=== PATIENT | female | born 1945 | race Caucasian/White ===

== ENCOUNTER → 2024-01-06 13:08 | Outpatient (BNVA) | payer OTHER, SELFPAY | PROVIDERS: PCP Internal Medicine; Referring Provider Internal Medicine; Visit Provider Internal Medicine Critical Care Medicine | DX: R05.3 Chronic cough (principal); G47.33 Obstructive sleep apnea (adult) (pediatric); Z87.891 Personal history of nicotine dependence | CPT/HCPCS: 99204 ==

== ENCOUNTER → 2024-02-04 12:49 | Outpatient (BNVA) | payer OTHER, SELFPAY | PROVIDERS: PCP Internal Medicine; Referring Provider Internal Medicine; Visit Provider Internal Medicine Critical Care Medicine | DX: J45.20 Mild intermittent asthma, uncomplicated (principal); R05.3 Chronic cough | CPT/HCPCS: 36415; 99213 ==

== ENCOUNTER 2024-02-04 13:44 | Outpatient (REF) | payer OTHER, SELFPAY ==
[2024-02-04 13:54] LABS: Abs Immature Grans 0.02 10^3/uL (0.0-0.06); Absolute Basophil Count 0.05 10^3/uL (0.0-0.2); Absolute Eosinophil Count 0.66 10^3/uL (0.0-0.7); Absolute Lymphocyte Count 2.81 10^3/uL (1.2-3.4); Absolute Monocyte Count 0.63 10^3/uL (0.1-0.8); Absolute Neutrophil Count 4.02 10^3/uL (1.2-6.7); Basophils % 0.6 %; Eosinophils % 8.1 %; HCT 40.5 % (36.0-46.0); HGB 13.1 g/dL (11.2-15.7); Immature Grans % 0.2 %; Lymphocytes % 34.3 %; MCH 28.9 pg (27.0-33.0); MCHC 32.3 % (32.0-36.0); MCV 89 fL (80-95); Monocytes % 7.7 %; Neutrophils % 49.1 %; Platelet Count 245 10^3/uL (130-400); RBC 4.53 10^6/uL (3.93-5.22); RDW 14.5 % (11.7-14.6); RDW-SD 47.4 fL; WBC 8.19 10^3/uL (4.4-10.8)
[2024-02-06 08:34] LABS: IgE 31 IU/mL (<158)
== END 2024-02-04 13:45 | disposition home or self-care (01) ==
LOC: LBN 13:44
PROVIDERS: PCP Internal Medicine; Visit Provider Internal Medicine Critical Care Medicine
DX: R05.3 Chronic cough (principal)
CPT/HCPCS: 82785; 85025

== ENCOUNTER 2024-02-27 11:40 | Outpatient (CLI) | payer OTHER, SELFPAY ==
[2024-03-03 17:43] LABS: Alternaria Tenuis IgE <0.10 kU/L (<0.70); Aspergillus Fumigatus IgE <0.10 kU/L (<0.70); Bermuda Grass IgE <0.10 kU/L (<0.70); Cocklebur IgE <0.10 kU/L (<0.70); Cockroach IgE <0.10 kU/L (<0.70); Cottonwood IgE <0.10 kU/L (<0.70); D Farinae IgE <0.10 kU/L (<0.70); D Pteronyssinus IgE <0.10 kU/L (<0.70); Eastern Sycamore IgE <0.10 kU/L (<0.70); Elm IgE <0.10 kU/L (<0.70); Epicoccum purpurascens IgE <0.10 kU/L (<0.70); Fusarium moniliforme, IgE <0.10 kU/L (<0.70); Giant Ragweed IgE <0.10 kU/L (<0.70); Lamb's Quarter IgE <0.10 kU/L (<0.70); Oak IgE <0.10 kU/L (<0.70); Penicillium chrysogenum IgE <0.10 kU/L (<0.70); Red Sorrel IgE <0.10 kU/L (<0.70); Rough Pigweed IgE <0.10 kU/L (<0.70); Short Ragweed IgE <0.10 kU/L (<0.70); Silver Birch IgE <0.10 kU/L (<0.70); Stemphyllium IgE <0.10 kU/L (<0.70); Timothy Grass IgE <0.10 kU/L (<0.70); Walnut Tree IgE <0.10 kU/L (<0.70)
[2024-03-03 22:58] LABS: Cat Epithelium IgE <0.10 kU/L (<0.70); Cladosporium IgE <0.10 kU/L (<0.70); Dog Dander IgE <0.10 kU/L (<0.70); Wormwood IgE <0.10 kU/L (<0.70)
[2024-03-05 18:04] LABS: CLASS 0; Cedar Red IgE <0.10 kU/L (<0.35); Rhodotorula IgE <0.35 kU/L (<0.35)
== END 2024-02-27 11:41 | disposition home or self-care (01) ==
LOC: LBO 11:41
PROVIDERS: PCP Internal Medicine; Visit Provider Otolaryngology Otolaryngology/Facial Plastic Surgery
DX: J45.20 Mild intermittent asthma, uncomplicated (principal); R05.3 Chronic cough; K22.70 Barrett's esophagus without dysplasia; K21.9 Gastro-esophageal reflux disease without esophagitis; R49.0 Dysphonia
CPT/HCPCS: 36415; 86003

== ENCOUNTER → 2024-04-08 13:08 | Outpatient (BNVA) | payer OTHER, SELFPAY | PROVIDERS: PCP Internal Medicine; Referring Provider Internal Medicine; Visit Provider Surgery | DX: K22.70 Barrett's esophagus without dysplasia (principal); K21.9 Gastro-esophageal reflux disease without esophagitis; K58.9 Irritable bowel syndrome, unspecified; G47.33 Obstructive sleep apnea (adult) (pediatric); R05.3 Chronic cough; R06.2 Wheezing | CPT/HCPCS: 99214 ==

== ENCOUNTER 2024-05-21 05:58 | Day surgery (SDC) | payer OTHER, SELFPAY ==
--- NOTE | 2024-05-20 20:41 | HPE_ITS ---
Date of service: 05/21/24 Time of Service: 07:36 Assessment and Plan Assessment and plan (1) Essential hypertension: (2) Nonrheumatic aortic (valve) stenosis: (3) Hyperlipidemia: (4) Type 2 diabetes mellitus: (5) GERD (gastroesophageal reflux disease): (6) Barretts esophagus: Assessment and plan: EGD w/ Bx Informed consent is obtained for the procedural (explained in simple layman's terms that the pt. and/or family could understand) explaining risks vs benefits and alternatives to the procedure and consequences if we do not do the procedure and need/rational for the procedure. Risks include but are not limited to: bleeding, infection, perforation of esophagus, stomach, colon, small intestines, bronchus or trachea, or PTX. This would necessitate emergency surgery to repair the damage w/ possible ostomy; and other associated complications w/ the required surgery. Also complications of anesthesia including aspiration, OR/CVA/. History of Present Illness Narrative: Patient is here today for egd for Flanagan's surveillance.? They not having any chest pain or shortness of breath, currently.? They are not experiencing any fever or chills.? They deny any productive cough or upper respiratory tract infection signs or symptoms.? She does have a chronic cough. She is also having diarrhea today. They are not having abdominal pain, or nausea and vomiting.? They have not had any changes in medications, past medical history or past surgical history since previously being seen in the office. They have not had any accidents or have been in the ER since the clinic pre-operative evaluation. ??I reviewed the procedure with the patient today, including risks and benefits of the procedure, and what they could expect at home for recovery.? All questions are answered to the patient?s satisfaction today, and they are stable to proceed with the proposed procedure. They have a history of Flanagan's esophagus but report no current issues with swallowing. They do not experience heartburn or indigestion, attributing this to their use of Prilosec and Pepcid. Despite their condition, they have not experienced any weight loss. They have a chronic cough and wheezing, for which they use Breo. They noticed a change in their voice last year, prior to starting Breo. They experience shortness of breath when climbing stairs or exerting themselves beyond their normal activities. They have an upcoming appointment with a catalyst impregnator. They are not using Flonase or any other inhalers, except for Breo. They do not r equire oxygen. They have quit smoking and live in an older home where mold is present. They have undergone tubal ligation, hysterectomy, and lap band surgery in the past, with no complications from anesthesia. They have never had a heart attack or stroke. They were previously on metformin for prediabetes but are not currently taking any medication. Their last A1c was 5.8. They have no liver or kidney issues. Review of Systems All systems reviewed & are unremarkable except as noted in HPI and below PFSH All Active Problems Asthma (Chronic) Cough (Acute) Cough in adult (Acute) Medical History Barretts esophagus Depression GERD (gastroesophageal reflux disease) Nonrheumatic aortic (valve) stenosis IBS (irritable bowel syndrome) Lumbar radiculopathy DANN (obstructive sleep apnea) Essential hypertension Hyperlipidemia Type 2 diabetes mellitus Allergic rhinitis Chronic sinusitis Social History Smoking/Tobacco Use Status: Former Tobacco Use Quit Date: 06/09/83 Smoking risk assessment performed?: Yes Alcohol Intake: current Alcohol Intake frequency: holidays/special occasions only Alcohol type: wine Drug use: Never Substance use type: does not use Housing: house Do you feel safe at home: Yes Do you feel safe in your relationship?: Yes Meds Allergies and Home Medications Allergies Allergy/AdvReac Type Severity Reaction Status Date / Time atorvastatin (From Lipitor) Allergy Intermediate nausea Verified 05/20/24 14:19 hydrochlorothiazide Allergy Intermediate rash Verified 05/20/24 14:19 Home Medications ?Medication ?Instructions ?Recorded ?Confirmed ?Type fluoxetine 40 mg capsule 40 mg PO DAILY 11/25/23 05/21/24 History amlodipine 10 mg tablet 10 mg PO DAILY 12/02/23 05/21/24 History bupropion HCl 300 mg 24 hr tablet, 300 mg PO QAM 12/03/23 05/21/24 History extended release (Wellbutrin XL) omeprazole 40 mg capsule,delayed 40 mg PO DAILY 12/03/23 05/21/24 History release gabapentin 300 mg capsule 300 mg PO BID PRN 12/04/23 05/21/24 History glucosamine HCl 1,500 mg tablet 1,500 mg PO BID 12/04/23 05/21/24 History pramipexole 0.25 mg tablet 0.25 mg PO DAILY 12/04/23 05/21/24 History albuterol sulfate 90 mcg/actuation 2 puff inhalation QID PRN 01/06/24 05/21/24 History aerosol inhaler fluticasone furoate 100 1 inh inhalation DAILY 02/27/24 05/21/24 History mcg-vilanterol 25 mcg/dose inhalation powder (Breo Ellipta) cyanocobalamin (vitamin B-12) 1,000 mcg PO DAILY 05/21/24 05/21/24 History 1,000 mcg capsule famotidine 20 mg tablet (Acid 20 mg PO DAILY 05/21/24 05/21/24 History Controller) famotidine 20 mg tablet (Acid 20 mg PO DAILY 05/21/24 05/21/24 History Controller) Exam Narrative Exam Narrative: PHYSICAL EXAM GENERAL APPEARANCE: Alert, healthy appearance, oriented, x 3,? in no acute distress HYDRATION: Well hydrated HEAD, EYES, EARS, NECK, THROAT: Head is normocephalic, pupils equal, round, reactive to light and accommodation, ocular movement intact, sclera clear and no jaundice. ?Dentition intact. LUNGS: normal respiration/normal chest excursion. ?Clear to auscultation bilaterally. ?No wheeze. ?HEART: Regular rate and rhythm. no murmurs ABDOMEN: soft and non-tender to palpation.? Normal bowel sounds.? Time Spent Time spent with Patient: <40 minutes Time was spent: preparing to see the patient(eg.review tests), obtaining and/or reviewing separately otained hiistory, ordering medications,tests, procedures, referring, communicating with other health care coordinator, indepentently interpreting results, counseling the patient, care coordination and other
--- NOTE | 2024-05-20 20:47 | W.PM.ENDDOP ---
Date of service: 05/21/24 Time of Service: 09:06 Endoscopy Report DATE OF PROCEDURE: 05/21/24 PRE-OP DIAGNOSIS: Flanagan's POST-OP DIAGNOSIS: other (Flanagan's/hiatal hernia/fundic gland polyps) SURGEON: Rosalind Serna ANESTHESIA TYPE: General:No Airway ESTIMATED BLOOD LOSS: 2 PATHOLOGY: other COMPLICATIONS: None DISPOSITION: same day PROCEDURE DESCRIPTION: Informed consent was obtained from the pt; explaining the benefits and Risks: bleeding, infections, perforations {which could require surgery or antibiotics and prolonged hospital stay}, or ostomy, and complications of anaesthesia, chapis aspiration). The patient was take to the procedure room and placed in a supine position. Monitors were applied and a time out was done. The patients name, date of , procedure type, allergies to medications and metal in their body was reviewed. A bite block was placed and the patient was sedated. Once sedated and comfortable an Olympus gastroscope (see RN notes for scope #) was advanced through the oropharynx which was grossly normal, and passed into the esophagus. The proximal and mid-esophagus were normal. The distal esophagus does not show any: dilation/strictures/varices/erosions or ulcers/bleeding noted. She does have presbyesophagus of the esophagus. She does have fluid within the esophagus at least the distal third to one half of the esophagus. There is changes at the GE junction associated with chronic Flanagan's. There is at least 2 tongues of Flanagan's that are less than half a centimeter. There is no sign of active inflammation. The scope was advanced into the stomach and through the pylorus into the proximal jejunum. The duodenum was noted to be normal. Biopsies were done of the duodenal bulb.. The scope was retracted back into the stomach and biopsies were taken of the antrum. There were no gastritis/gastropathy/ ulcers/masses noted. The scope was retroflexed. The cardia and fundus were noted to be normal. There 5cm sliding-type hiatal hernia noted. The scope was retracted back into the esophagus and biopsies were done of the GE junction (in all 4 quadrants). All specimens are retrieved and no bleeding was noted. The Z line was irregular. The GE junction was at 34 cm. The scope was removed and the patient was woken up and taken back to [facility] in stable condition.
--- NOTE | 2024-05-20 20:49 | PDOC.DSDIS_ITS ---
Date of service: 05/21/24 Discharge Plan Disposition Patient Disposition: Home Discharge Details Reason For Visit: EGD Attending Provider: Rosalind Serna Primary Care Provider: Marianne Plunkett Home Meds and New Rx's Prescriptions: No Action glucosamine HCl 1,500 mg tablet 1,500 mg PO BID Rx Instructions: administer with a meal pramipexole 0.25 mg tablet 0.25 mg PO DAILY albuterol sulfate 90 mcg/actuation HFA aerosol inhaler 2 puff inhalation QID PRN Patient Comments: reports she does not use it all the time fluticasone furoate-vilanterol [Breo Ellipta] 100-25 mcg/dose blister with device 1 inh inhalation DAILY fluoxetine 40 mg capsule 40 mg PO DAILY amlodipine 10 mg tablet 10 mg PO DAILY bupropion HCl [Wellbutrin XL] 300 mg tablet extended release 24 hr 300 mg PO QAM omeprazole 40 mg capsule,delayed release(DR/EC) 40 mg PO DAILY gabapentin 300 mg capsule 300 mg PO BID PRN famotidine [Acid Controller] 20 mg tablet 20 mg PO DAILY famotidine [Acid Controller] 20 mg tablet 20 mg PO DAILY cyanocobalamin (vitamin B-12) 1,000 mcg capsule 1,000 mcg PO DAILY Discharge Instructions Additional Instructions: Post EGD Instruction ?You had anesthesia for your EGD/stomach scope today.? For your safety, please do the following for the next twenty-four (24) hours: Do Not operate a motor vehicle (car, truck, motorcycle, etc.) Do Not drink alcoholic beverages or use any recreational drugs for the first 24 hours or while taking pain medications. The medications in your body may have a reaction that can be dangerous. Do Not make any important decisions or sign any important papers You have just had a gastroscopy (EGD) or upper GI tract examination. It is important for your smooth recovery that you carefully follow the recommendations below. Do not hesitate to call if any questions should arise about your anesthesia, condition, or care. -Symptoms you may experience during the next 24 hours: ?1. Mild abdominal pain or excessive gas or a bloated feeling which improves with rest, liquids, eating? slightly, and walking as tolerated. 2. Drowsiness and/or forgetfulness because of the medications you were given. 3. A sore throat which you can treat with throat lozenges or by gargling with salt water 4-5 times a day. 4. Redness at the site of your IV which you can treat with warm compresses. SPECIAL INSTRUCTIONS: 1. You may resume your previous diet in one hour. We recommend a light meal to start, then progress as tolerated. 2. Restart regular medications in one hour. 3. No aspirin or non-steroidal containing medication for 24 hrs. 4. No lifting over 20 pounds or strenuous activity for the first 24 hours after your procedure. After 24 hours there are no restrictions on your activity, but you may feel fatigued for a few days. -Findings: Chronic Flanagan's esophagus. My office will send you a letter in 3 to 4 weeks time with the results of the biopsies. I would not recommend any further routine screening endoscopies. -Medications: Continue omeprazole as long as you are well-controlled on this medication continue on this medication -Continue to follow lifestyle modifications: No alcohol, tobacco products, Aspirin or NSAID's (ibuprofen, Motrin, Naprosyn, aleve, etc).? Try to limit/avoid:? soda pop/any carbonated beverages, caffeine (including tea & chocolate), and acidic foods, (tomatoes, citrus, onions, peppermints) spicy or fried/fatty foods. Do not lie down for 30 minutes after eating, and do not eat 2 hours prior to bedtime. Avoid wearing tight fitting clothing/ belts. Follow up: -My office will send a letter with the results of your biopsy?s in 2-3wks time. Call the office at [phone] (Office) or [phone] (Hospital), or go to the ER right away if you notice any of the followin. Vomiting blood and /or ?coffee ground? material. ?2. Worsening of abdominal pain or cramping. ?3. Trouble with breathing, cough, and/or fever (temperature above 101.5 F). 4. Increasing pain with swallowing. ?5. Chest pain. 6. Any new symptoms. 7. Worsening of the redness at the IV site Activity:: see above Diet:: see above Discharge Orders Discharge Orders: Discharge Order (Routine); Ordered 05/20/24 Ordered By: Rosalind Serna DS: Diagnosis Discharge Diagnosis (1) Essential hypertension: (2) Nonrheumatic aortic (valve) stenosis: (3) Hyperlipidemia: (4) Type 2 diabetes mellitus: (5) GERD (gastroesophageal reflux disease): (6) Barretts esophagus: Asessment and Plan: Patient is seen and examined after they are endoscopy.? Patient has minimal sore throat.? They have been able to tolerate liquids.? They do not have any nausea vomiting.? They are not having any chest pain or shortness of breath.? They have been able to pass gas and are not having any abdominal pain or distention.? They have not vomited any blood.? The vital signs have been stable-see nursing notes. We discussed findings on their endoscopy. We reviewed the importance of lifestyle modification-see discharge instructions We reviewed any new medications that the patient may be prescribed-see discharge instructions Patient will either be sent a letter with the biopsy results or follow-up in the office-see discharge instructions. Patient was given explicit instructions to follow-up regarding post endoscopy- refer to discharge Patient verbalized understanding and discharged in stable and satisfactory condition.? See nursing notes.
[2024-05-21 06:34] VITALS: BP 163/76; PULSE 65; RESP 16; TEMP 36.6; O2SAT 100
--- NOTE | 2024-05-21 07:15 | W.ANESPRE ---
General Info Date of Service Date Performed: 05/21/24 Height: 5 ft Weight: 81.3 kg Body Mass Index (BMI): 34.9 Surgical Procedure: Operation Date: 05/21/24 07:35 Proposed Procedure Side Surgeon p Gastroscopy Rosalind Serna, DO Meds Allergies and Home Medications Allergies Allergy/AdvReac Type Severity Reaction Status Date / Time atorvastatin (From Lipitor) Allergy Intermediate nausea Verified 05/20/24 14:19 hydrochlorothiazide Allergy Intermediate rash Verified 05/20/24 14:19 Home Medication ?Medication ?Instructions ?Recorded fluoxetine 40 mg capsule 40 mg PO DAILY 11/25/23 amlodipine 10 mg tablet 10 mg PO DAILY 12/02/23 bupropion HCl 300 mg 24 hr tablet, 300 mg PO QAM 12/03/23 extended release (Wellbutrin XL) omeprazole 40 mg capsule,delayed 40 mg PO DAILY 12/03/23 release gabapentin 300 mg capsule 300 mg PO BID PRN 12/04/23 glucosamine HCl 1,500 mg tablet 1,500 mg PO BID 12/04/23 pramipexole 0.25 mg tablet 0.25 mg PO DAILY 12/04/23 albuterol sulfate 90 mcg/actuation 2 puff inhalation QID PRN 01/06/24 aerosol inhaler fluticasone furoate 100 1 inh inhalation DAILY 02/27/24 mcg-vilanterol 25 mcg/dose inhalation powder (Breo Ellipta) cyanocobalamin (vitamin B-12) 1,000 mcg PO DAILY 05/21/24 1,000 mcg capsule famotidine 20 mg tablet (Acid 20 mg PO DAILY 05/21/24 Controller) famotidine 20 mg tablet (Acid 20 mg PO DAILY 05/21/24 Controller) Current Visit Medications: Current Medications Generic Name Dose Route Start Last Admin Trade Name Freq PRN Reason Stop Dose Admin Ringer's Solution 1,000 mls @ 80 mls/hr 05/21/24 06:00 IV 05/21/24 23:59 INFUSION [facility] IV Miscellaneous Supplies 1 each 05/21/24 06:00 Iv Access IV 05/21/24 23:59 DIRECTED [facility] Ondansetron HCl 4 mg 05/21/24 08:51 Ondansetron 4 Mg/2 Ml Vial IVP 06/20/24 08:50 Q4H PRN PRN Nausea / Vomiting Sodium Chloride 0 ml 05/21/24 06:00 Normal Saline Flush 10 Ml Syr IV 05/21/24 23:59 PRN PRN Sodium Chloride 0 ml 05/21/24 06:00 Normal Saline 10 Ml Vial IJ 05/21/24 23:59 DIRECTED PRN Sterile Water 0 ml 05/21/24 06:00 Water,Injection,Sterile 10 Ml Vial IJ 05/21/24 23:59 DIRECTED PRN PFSH Active Problems Active Problems: Problem Status Onset Code Asthma Chronic J45.909 Cough Acute R05.9 Cough in adult Acute R05.9 Medical History Medical History Barretts esophagus Depression GERD (gastroesophageal reflux disease) Nonrheumatic aortic (valve) stenosis IBS (irritable bowel syndrome) Lumbar radiculopathy DANN (obstructive sleep apnea) Essential hypertension Hyperlipidemia Type 2 diabetes mellitus Allergic rhinitis Chronic sinusitis Tobacco Smoking/Tobacco Use Status: Former Tobacco Use Alcohol Alcohol Intake: current Alcohol intake frequency: holidays/special occasions only Alcohol type: wine Substance Use Substance use: Never Substance use type: does not use Vital Signs and Lab Results Vital Signs Most Recent Vital Signs in EMR: Most Recent Vital Signs Temp Pulse Resp BP Pulse Ox 36.6 C 65 16 163/76 H 100 05/21/24 06:34 05/21/24 06:34 05/21/24 06:34 05/21/24 06:34 05/21/24 06:34 Point of Care Results Point of Care Results: Finger Stick Blood Glucose 155 05/21/24 06:22 Lab Results Blood Type / Crossmatch: No Data to Display Complete Blood Count: No Data to Display Complete Metabolic Panel: No Data to Display Liver Function Panel: No Data to Display Coagulation Panel: No Data to Display Cardiac Panel: No Data to Display Arterial Blood Gas: No Data to Display Venous Blood Gas: No Data to Display Pancreas Panel: No Data to Display Thyroid Panel: No Data to Display Infectious Disease: No Data to Display Blood Cultures: No Data to Display Toxicology Panel: No Data to Display Imaging and Studies Imaging and Studies Study information below may be from another EMR and interpreted by another provider. Please see original notes in EMR for more complete details. Echocardiogram Summary: [facility] Echo Results: 06/11/23: EF 65%, aortic valve area 0.9 cm2, peak gradient 2.9 m/s, mean gradient 19 mmHg, mean PAP: 25 Mild-moderate Anesthesia Assessment and Plan Anesthesia History Personal History: Other Family History: No Family History of Anesthesia Complications Exercise Tolerance Exercise Tolerance: Metabolic Equivalents>4 Cardiac & Pulmonary Exam Cardiac Exam: Heart Murmur Present Pulmonary Exam: Clear Bilateral Breath Sounds Implantable Cardiac Device Does patient have a Pacemaker or an ICD?: No Airway Exam Known Difficult Airway: No Mallampati Class: 3 Mouth Opening: Normal (> 3cm) Thyromental Distance: Greater than 3 cm Neck Range of Motion: Full ROM Neck Circumference: Normal Teeth Condition: Edentulous ASA Classification ASA Score: ASA 3 Emergency Case?: No NPO Status NPO Status: NPO Clears >2 hours, Solids >8 hours Anesthesia Plan Resuscitation Status: Full Code Anesthesia Technique: General Anesthesia Airway Planned: Natural Airway Monitors Used: Standard Monitors
[2024-05-21 07:19] VITALS: BMI 34.9
[2024-05-21] MEDS: Lactated Ringers 1,000 ML 80 ML IV (07:44)
--- NOTE | 2024-05-21 07:54 | STOM_PTH ---
PATIENT: Carmela Salvador LOC: [facility] U#:[id number] AGE/SX: 79/F ROOM: RE05/21/[address]: Rosalind Serna : 1945 BED: DIS: 05/21/2024 SPEC #: [id number] RECD: 05/21/24 12:53 STATUS: JORDAN RE #: [id number] ANTHONY: 05/21/24 07:[address]: Rosalind Serna DEPT: Surgical Specimen RECD BY: Moon Pacheco ENTERED: 05/21/24 12:55 SP TYPE: STOMACH OTHR DR: Marianne Plunkett Tissues: 1 - BIOPSY BOWEL 2 - STOMACH BIOPSY 3 - STOMACH BIOPSY 4 - STOMACH BIOPSY 5 - ESOPHAGUS BIOPSY Procedures: GROSS AND MICRO LEVEL 4 Comments: [id number]
[2024-05-21 08:12] VITALS: BP 151/74; PULSE 86; RESP 18; TEMP 36.4; O2SAT 96
--- NOTE | 2024-05-21 08:21 | W.ANESPOSTOP ---
Postoperative Evaluation Date, Time and Location Date Performed: 05/21/24 Time Performed: 08:20 Patient Location: Day Surgery Unit Vital Signs Most Recent Imported Vital Signs: Most Recent Vital Signs Temp Pulse Resp BP Pulse Ox 36.4 C L 86 18 151/74 H 96 05/21/24 08:12 05/21/24 08:12 05/21/24 08:12 05/21/24 08:12 05/21/24 08:12 Pain Score Most Recent Pain Score: Most Recent Pain Score Pain Level 0 05/21/24 08:12 Assessment Mental Status: Awake (Alert & Oriented to Patient Baseline) Airway and Respiratory Function: Patent airway with normal (patient baseline) respiratory exam Cardiovascular Function: Hemodynamically Stable Hydration Status: Adequately Hydrated Nausea & Vomiting: No Nausea or Vomiting Pain: Pt. Denies Any Pain Peripheral Nerve Block: Patient did not receive a nerve block
[2024-05-21 08:43] VITALS: BP 153/78; PULSE 65; RESP 16; TEMP 36.4; O2SAT 97
--- NOTE | 2024-05-21 09:22 | W.PM.DSUDISC ---
Date of service: 05/21/24 Discharge Plan Disposition Patient Disposition: Home Discharge Details Reason For Visit: EGD Attending Provider: Rosalind Serna Primary Care Provider: Marianne Plunkett Home Meds and New Rx's Prescriptions: New pantoprazole [Protonix] 40 mg tablet,delayed release (DR/EC) 40 mg PO DAILY Qty: 90 12RF Discontinued omeprazole 40 mg capsule,delayed release(DR/EC) 40 mg PO DAILY No Action glucosamine HCl 1,500 mg tablet 1,500 mg PO BID Rx Instructions: administer with a meal pramipexole 0.25 mg tablet 0.25 mg PO DAILY albuterol sulfate 90 mcg/actuation HFA aerosol inhaler 2 puff inhalation QID PRN Patient Comments: reports she does not use it all the time fluticasone furoate-vilanterol [Breo Ellipta] 100-25 mcg/dose blister with device 1 inh inhalation DAILY fluoxetine 40 mg capsule 40 mg PO DAILY amlodipine 10 mg tablet 10 mg PO DAILY bupropion HCl [Wellbutrin XL] 300 mg tablet extended release 24 hr 300 mg PO QAM gabapentin 300 mg capsule 300 mg PO BID PRN famotidine [Acid Controller] 20 mg tablet 20 mg PO DAILY famotidine [Acid Controller] 20 mg tablet 20 mg PO DAILY cyanocobalamin (vitamin B-12) 1,000 mcg capsule 1,000 mcg PO DAILY Discharge Instructions Additional Instructions: Post EGD Instruction ?You had anesthesia for your EGD/stomach scope today.? For your safety, please do the following for the next twenty-four (24) hours: Do Not operate a motor vehicle (car, truck, motorcycle, etc.) Do Not drink alcoholic beverages or use any recreational drugs for the first 24 hours or while taking pain medications. The medications in your body may have a reaction that can be dangerous. Do Not make any important decisions or sign any important papers You have just had a gastroscopy (EGD) or upper GI tract examination. It is important for your smooth recovery that you carefully follow the recommendations below. Do not hesitate to call if any questions should arise about your anesthesia, condition, or care. -Symptoms you may experience during the next 24 hours: ?1. Mild abdominal pain or excessive gas or a bloated feeling which improves with rest, liquids, eating? slightly, and walking as tolerated. 2. Drowsiness and/or forgetfulness because of the medications you were given. 3. A sore throat which you can treat with throat lozenges or by gargling with salt water 4-5 times a day. 4. Redness at the site of your IV which you can treat with warm compresses. SPECIAL INSTRUCTIONS: 1. You may resume your previous diet in one hour. We recommend a light meal to start, then progress as tolerated. 2. Restart regular medications in one hour. 3. No aspirin or non-steroidal containing medication for 24 hrs. 4. No lifting over 20 pounds or strenuous activity for the first 24 hours after your procedure. After 24 hours there are no restrictions on your activity, but you may feel fatigued for a few days. -Findings: Chronic Flanagan's esophagus. My office will send you a letter in 3 to 4 weeks time with the results of the biopsies. I would not recommend any further routine screening endoscopies. -Medications: Patient continues to have a problem with chronic cough which I feel is is from her reflux. She has been on omeprazole for greater than 10 years. She would like to try another PPI and see if this is more efficacious. I did change her medication to Protonix. If her insurance does not pay for this or if she does not feel that this medication controls her reflux as well as her omeprazole, please contact the office and let us know and we can switch her back to omeprazole or try a different PPI. -Continue to follow lifestyle modifications: No alcohol, tobacco products, Aspirin or NSAID's (ibuprofen, Motrin, Naprosyn, aleve, etc).? Try to limit/avoid:? soda pop/any carbonated beverages, caffeine (including tea & chocolate), and acidic foods, (tomatoes, citrus, onions, peppermints) spicy or fried/fatty foods. Do not lie down for 30 minutes after eating, and do not eat 2 hours prior to bedtime. Avoid wearing tight fitting clothing/ belts. Follow up: -My office will send a letter with the results of your biopsy?s in 2-3wks time. Call the office at [phone] (Office) or [phone] (Hospital), or go to the ER right away if you notice any of the followin. Vomiting blood and /or ?coffee ground? material. ?2. Worsening of abdominal pain or cramping. ?3. Trouble with breathing, cough, and/or fever (temperature above 101.5 F). 4. Increasing pain with swallowing. ?5. Chest pain. 6. Any new symptoms. 7. Worsening of the redness at the IV site Stand Alone Forms: Anesthesia Discharge Inst., Rhoda Damon ([facility]) Activity:: see above Diet:: see above Discharge Orders Discharge Orders: Discharge Order (Routine); Ordered 05/20/24 Ordered By: Rosalind Serna DS: Diagnosis Discharge Diagnosis (1) Essential hypertension: (2) Nonrheumatic aortic (valve) stenosis: (3) Hyperlipidemia: (4) Type 2 diabetes mellitus: (5) GERD (gastroesophageal reflux disease): (6) Barretts esophagus:
== END 2024-05-21 09:27 | disposition home or self-care (01) ==
LOC: SUR 05:58
PROVIDERS: PCP Internal Medicine; Visit Provider Surgery
PROC: 0DJ68ZZ Inspection of Stomach, Via Natural or Artificial Opening Endoscopic (ICD-10-PCS; CPT 43235; principal; 2024-05-21 07:30)
DX: K21.9 Gastro-esophageal reflux disease without esophagitis (principal); K22.70 Barrett's esophagus without dysplasia; E11.9 Type 2 diabetes mellitus without complications; K44.9 Diaphragmatic hernia without obstruction or gangrene; K31.7 Polyp of stomach and duodenum; K31.89 Other diseases of stomach and duodenum; K22.89 Other specified disease of esophagus
CPT/HCPCS: 43239; 88305; J2003; J2371; J2704

== ENCOUNTER 2025-03-28 12:38 | Outpatient (CLI) | payer MEDICARE, SELFPAY ==
[2025-03-28 12:47] VITALS: PULSE 64; RESP 20; TEMP 36.9; O2SAT 97
--- NOTE | 2025-03-28 12:49 | PDOC.PAIN_ITS ---
Date of service: 03/28/25 Time of Service: 13:35 Pain Managment Procedure Note Procedure Note Procedure Note: Lumbar Medial Branch Block ? Location: Bilateral Medial Branches ? Levels: L3,4,5? (L4-5, L5-S1 FACET) ? Pre-procedure Diagnosis: M47.817 Spondylosis without myelopathy or radiculopathy, lumbosacral region M47.816 Spondylosis without myelopathy or radiculopathy, lumbar region ? Post-procedure Diagnosis:? The same as above ? Sedation: NONE? Estimated blood loss:? less than 2 ml ? Surgeon:? Miguel Quinteros MD COMMENT: Patient has multiple levels of degenerative disc disease and facet arthropathy with mechanical low back back pain ? Procedure Detail:? The procedure and potential risks were explained to the patient and informed written consent was obtained. The patient was escorted to the procedure room and placed in the prone position. Pillows were utilized for proper positioning and comfort.? Time out was performed in procedure room with nursing staff confirming the patient's identity, procedure to be performed, allergies, and any blood thinning or anti-platelet medications. The patient's lower back was prepped with chlorhexidine and draped in a sterile fashion. Sterile technique was maintained throughout the procedure.? Sterile gloves were used, a face mask was worn, and new single dose vials of all medications were used with the top being swabbed with alcohol and given time to dry prior to withdrawal of medication.? A left AND right-sided oblique fluoroscopic view was obtained, with visualization of the: ?RIGHT and LEFT L3,4 and DORSAL RAMUS L5 AT SACRAL ALA ? junction of the transverse process and superior articular process. Lidocaine 1% was used to anesthetize the skin. A 22-gauge Quincke needle was advanced along the superior margin of the transverse process and lateral to the articular process.? It was directed inferiorly and medially so that the tip struck the junction of the base of the transverse process and the superior articular process. The needle was then walked over the superior aspect of the transverse process and advanced slightly along the course of the L3,4,5 medial branch nerves. Proper placement was verified in A/P, oblique and lateral views under f luoroscopy. At this location, following negative aspiration, 0.5ml 0.5% bupivacaine was injected.? The patient tolerated the procedure well and was transported to the recovery area for observation and discharge instructions. Permanent images saved and recorded. Follow-up:? The patient will return in 2 weeks for confirmatory LMBBs if they? meet the criteria from today's procedure lasting for at least 2 hours.? COMMENT:Pain went from 8 /10 to 2/10. Before the patient left patient had greater than 75% pain relief. Patient has disc protrusion at L2-3 as well as Modic changes around that disc. If this is not effective then consider epidural steroid injection possible basivertebral nerve ablation. Large broad-based disc bulge and facet hypertrophy cause moderate central spinal canal stenosis. Moderate-severe foraminal stenosis. 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
--- NOTE | 2025-03-28 13:31 | DI.RAD_ITS ---
Exam(s) XR PAIN CLINIC LUMBAR SP 2V EXAM: XR PAIN CLINIC LUMBAR SP 2V CLINICAL HISTORY: DX: Lumbar Spondylosis. TECHNIQUE: Fluoroscopy was provided for the referring physician for guidance with performing pain clinic injection procedure. COMPARISON: No exams were available for comparison FINDINGS: Please see procedure note for details. Fluoro time: 15.8 seconds RADIATION DOSE DELIVERED: luz marina Kim=5.26 mGy
[2025-03-28 13:41] VITALS: PULSE 66; O2SAT 96
[2025-03-28] MEDS: Nerve Block Tray 1 EACH MC (13:47)
[2025-03-28] MEDS: Bupivacaine 0.5% Pres-Free 10 ML VIAL IJ (13:47)
== END 2025-03-28 12:39 | disposition home or self-care (01) ==
LOC: PC 12:39
PROVIDERS: PCP Internal Medicine; Visit Provider Anesthesiology Pain Medicine
DX: M54.50 Low back pain, unspecified (principal); M47.816 Spondylosis without myelopathy or radiculopathy, lumbar region; M47.817 Spondylosis without myelopathy or radiculopathy, lumbosacral region
CPT/HCPCS: 64493; 64494; 72100; J0665

== ENCOUNTER 2025-04-27 09:11 | Outpatient (CLI) | payer MEDICARE, SELFPAY ==
[2025-04-27 09:22] VITALS: BP 129/82; PULSE 56; RESP 18; TEMP 36.8; O2SAT 96
--- NOTE | 2025-04-27 09:52 | PDOC.PAIN ---
Date of service: 04/27/25 Time of Service: 10:14 Pain Managment Procedure Note Procedure Note Procedure Note: ?Sacroiliac Joint Steroid Injection ? Location: Bilateral SI Joints? Pre-procedure Diagnosis: Sacroiliitis, not elsewhere classified - M46.1 ? Post-procedure Diagnosis:? The same as above ? Sedation:? NONE ? Medication: Depo-Medrol 40 mg, bupivacaine 0.5% 1 mL, Omnipaque 0.25 mL per joint ? Estimated blood loss:? less than 2 cc ? Surgeon:? Miguel Quinteros MD ? COMMENT: THIS WILL BE BOTH DIAGNOSTIC AND THERAPEUTIC ? Procedure Detail:? The procedure and potential risks were explained to the patient and informed written consent was obtained. The patient was escorted to the procedure room and placed in the prone position. Pillows were utilized for proper positioning and comfort. Time out was performed in the procedure room with nursing staff confirming the patient's identity, procedure to be performed, allergies, and any blood thinning or anti-platelet medications. The patient's lumbosacral area was prepped with ChloraPrep and draped in a sterile fashion. Sterile technique was maintained throughout the procedure.? Sterile gloves were used, a face mask was worn, and new single dose vials of all medications were used with the top being swabbed with alcohol and given time to dry prior to withdrawal of medication. Lidocaine 1% was used to anesthetize the skin. With fluoroscopic guidance, a 22-gauge 3.5 spinal needle was advanced into the posteroinferior aspect of the Bilateral SI joint. Confirmation of intra-articular position of the needle tip was obtained with injection of 0.25cc of Omnipaque 240 contrast which showed appropriate spread within the joint.? Following negative aspiration, 40mg of methylprednisolone mixed with 1 mL of bupivacaine 0.5% was injected.? The needle was gently removed. ?The patient tolerated the procedure well and was discharged home with instructions.? Permanent images saved and recorded. Plan:? Follow up prn. PAIN PRE PROCEDURE 01/16 POST PROCEDURE 09/16 COMMENT: 50 % BETTER AFTER INJECTION. Consider LESI for radicular symptoms Coding Conscious Sedation used for procedure: No CPT Codes: SI Joint Inj; incl Fluoro * BILATERAL* - [id number] ([id number]~G5) 50 - BILATERAL PROCEDURE Additional Codes: Date of Service () Diagnoses: Sacroiliitis, not elsewhere classified - M46.1
[2025-04-27 09:54] VITALS: PULSE 58; O2SAT 94
[2025-04-27 10:00] VITALS: PULSE 55; O2SAT 97
--- NOTE | 2025-04-27 10:01 | DI.RAD_ITS ---
Exam(s) XR PAIN CLINIC SACRIOILIAC 2V EXAM: XR PAIN CLINIC SACRIOILIAC 2V CLINICAL HISTORY: DX: Sacroiliac Dysfunction. TECHNIQUE: Fluoroscopy was provided for the referring physician for guidance with performing pain clinic injection procedure. COMPARISON: No exams were available for comparison FINDINGS: Please see procedure note for details. Fluoro time: 38.9 seconds RADIATION DOSE DELIVERED: Ka,r=13.48 mGy
[2025-04-27] MEDS: Nerve Block Tray 1 EACH MC (10:14)
[2025-04-27] MEDS: Omnipaque 240 MG/ML 50 ML BTL IJ (10:14)
[2025-04-27] MEDS: Bupivacaine 0.5% Pres-Free 10 ML VIAL IJ (10:15)
[2025-04-27] MEDS: methylPREDNISolone ACETATE 80 MG/ML VIAL IJ (10:15)
== END 2025-04-27 09:12 | disposition home or self-care (01) ==
LOC: PC 09:12
PROVIDERS: PCP Internal Medicine; Visit Provider Anesthesiology Pain Medicine
DX: M54.50 Low back pain, unspecified (principal); M46.1 Sacroiliitis, not elsewhere classified
CPT/HCPCS: 27096; 72200; J0665; J1010; Q9967